=== PATIENT | male | born 2000 | race Caucasian/White ===

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

== ENCOUNTER 2019-03-03 10:25 | Emergency (ER) | payer SELFPAY ==
[2019-03-03] MEDS ORDERED: DIPHENHYDRAMINE HCL 25 MG CAPSULE ONE (11:32)
[2019-03-03] MEDS ORDERED: KETOROLAC TROMETHAMINE 60 MG/2 ML VIAL ONE (11:32)
[2019-03-03] MEDS ORDERED: NEOMYCIN/POLYMYXIN/HC OTIC SUSP 10ML BOTTLE ONE (11:32)
[2019-03-03] MEDS ORDERED: AMOXICILLIN/POTASSIUM CLAV 875-125 TABLET PO ONE (11:48)
== END 2019-03-03 11:58 | disposition home or self-care (01) ==
LOC: EDH 10:25
DX: H60.311 Diffuse otitis externa, right ear (principal); H70.001 Acute mastoiditis without complications, right ear; Z72.0 Tobacco use
CPT/HCPCS: 96372; 99284; J1885; Q0163

== ENCOUNTER 2019-06-18 16:06 | Emergency (ER) | payer OTHER | END 2019-06-18 16:35 | disposition home or self-care (01) | LOC: EDH 16:06 | DX: J02.9 Acute pharyngitis, unspecified (principal); Z72.0 Tobacco use | CPT/HCPCS: 99281 ==

== ENCOUNTER 2022-01-25 18:11 | Emergency (ER) | payer OTHER ==
[~2022-01-25] VITALS: Ht 180.3 cm; Wt 68.0 kg
[2022-01-25 19:44] VITALS: BP 122/72
[2022-01-25] MEDS ORDERED: IBUP-2070 PO (19:52)
[2022-01-25] MEDS ORDERED: CORTSOL AD (19:52)
[2022-01-25] MEDS ORDERED: IBUPROFEN 600 MG TABLET PO ONE (20:00)
[2022-01-25] MEDS ORDERED: NEOMYCIN/POLYMYXIN/HC OTIC SUSP 10ML BOTTLE AD SCH (20:00)
== END 2022-01-25 20:10 | disposition home or self-care (01) ==
LOC: EDH 18:11
DX: S92.534A Nondisplaced fracture of distal phalanx of right lesser toe(s), initial encounter for closed fracture (principal); H60.91 Unspecified otitis externa, right ear; Z79.1 Long term (current) use of non-steroidal anti-inflammatories (NSAID); X58.XXXA Exposure to other specified factors, initial encounter; Y93.89 Activity, other specified; Y92.89 Other specified places as the place of occurrence of the external cause; Y99.8 Other external cause status
CPT/HCPCS: 73660

== ENCOUNTER 2022-07-19 07:53 | Emergency (ER) | payer OTHER ==
[~2022-07-19] VITALS: Ht 180.3 cm; Wt 68.0 kg
[~2022-07-19 07:53] MED LIST: CORTSOL AD; IBUP-2070 PO
[2022-07-19] MEDS ORDERED: IBUP-2070 PO (08:26)
[2022-07-19 08:39] VITALS: BP 122/76
[2022-07-19] MEDS: IBUPROFEN 600 MG TABLET PO ONE (08:44)
== END 2022-07-19 08:45 | disposition home or self-care (01) ==
LOC: EDH 07:53
DX: S90.121A Contusion of right lesser toe(s) without damage to nail, initial encounter (principal); F17.200 Nicotine dependence, unspecified, uncomplicated; Z79.1 Long term (current) use of non-steroidal anti-inflammatories (NSAID); X58.XXXA Exposure to other specified factors, initial encounter; Y93.89 Activity, other specified; Y92.89 Other specified places as the place of occurrence of the external cause; Y99.8 Other external cause status
CPT/HCPCS: 73660

== ENCOUNTER 2023-05-28 12:04 | Emergency (ER) | payer OTHER ==
[~2023-05-28] VITALS: Ht 175.3 cm; Wt 61.2 kg
[2023-05-28] MEDS ORDERED: CYCL10TA16 PO (14:00)
[2023-05-28] MEDS ORDERED: KETOROLAC 30MG VIAL (30MG/ML) IM ONE (14:00)
[2023-05-28] MEDS ORDERED: CYCLOBENZAPRINE HCL 10 MG TABLET PO ONE (14:00)
[2023-05-28 16:54] VITALS: BP 132/80; PULSE 70; RESP 16; O2SAT 100
== END 2023-05-28 16:57 | disposition home or self-care (01) ==
LOC: EDH 12:04
DX: S29.011A Strain of muscle and tendon of front wall of thorax, initial encounter (principal); F17.200 Nicotine dependence, unspecified, uncomplicated; Z79.899 Other long term (current) drug therapy; X58.XXXA Exposure to other specified factors, initial encounter; Y93.89 Activity, other specified; Y92.89 Other specified places as the place of occurrence of the external cause; Y99.8 Other external cause status
CPT/HCPCS: 99283; 71046; 96372; J1885